=== PATIENT | female | born 1995 | race Caucasian/White ===

== ENCOUNTER 2017-08-23 13:14 | Emergency (ER) | payer MEDICAID ==
[2017-08-23 13:20] VITALS: BP 116/78; PULSE 96; RESP 20; TEMP 98.6; O2SAT 98
[2017-08-23 13:26] VITALS: BMI 30.2
--- NOTE | 2017-08-23 15:56 | C.PDOC ---
History Of Present Illness 22 y/o female presents to the ER complaining of decreased vision in the right eye over the past 5 days. Patient states that the symptoms have been occuring gradually. Patient states that she did not seek any medical attention until now. Patient denies having any pain with eye movement, trauma, and other complaints. Chief Complaint (Nursing): Eye Problem History Per: Patient History/Exam Limitations: no limitations Onset/Duration Of Symptoms: Days Current Symptoms Are (Timing): Still Present Severity: Moderate Past Medical History Reviewed: Historical Data, Nursing Documentation, Vital Signs Vital Signs: Last Vital Signs Temp 98.6 F 08/23/17 13:20 Pulse 96 H 08/23/17 13:20 Resp 20 08/23/17 13:20 BP 116/78 08/23/17 13:20 Pulse Ox 98 08/23/17 16:01 - Medical History PMH: Asthma Surgical History: Tonsillectomy - [facility] Procedures MONITORING NOS (07/22/13) MANUAL ASSIST DELIV NEC (12/03/13) MEDICAL INDUCTION LABOR (12/03/13) REPAIR OB LACERATION NEC (12/03/13) SURG INDUCT LABOR NEC (12/03/13) TONSILLECTOMY/ADENOIDEC (05/29/01) Family History: States: No Known Family Hx - Social History Hx Tobacco Use: Yes Hx Alcohol Use: No Hx Substance Use: No - Immunization History Hx Tetanus Toxoid Vaccination: No Hx Influenza Vaccination: Yes Hx Pneumococcal Vaccination: No Review Of Systems Except As Marked, All Systems Reviewed And Found Negative. Eyes: Positive for: Vision Change (decreased vision in right eye). Negative for : Pain Physical Exam - Physical Exam Appears: Non-toxic, No Acute Distress Skin: Normal Color, Warm Head: Atraumatic, Normacephalic Eye(s): bilateral: PERRL, EOMI, right: Other (minimal vision with right eye, soft globe) Nose: Normal Oral Mucosa: Moist Neck: Supple Chest: Symmetrical Cardiovascular: Rhythm Regular Respiratory: Normal Breath Sounds, No Accessory Muscle Use, No Rales, No Rhonchi , No Wheezing Extremity: Normal ROM Neurological/Psych: Oriented x3, Normal Speech, Normal Motor, Normal Sensation ED Course And Treatment O2 Sat by Pulse Oximetry: 98 (RA) Pulse Ox Interpretation: Normal Medical Decision Making Medical Decision Making: Progress: Patient has been discharged and told to follow up with eye clinic. Disposition - Disposition Referrals: Trenton Marques [Staff Provider] - Disposition: HOME/ ROUTINE Disposition Time: 14:15 Condition: STABLE Additional Instructions: Thank you for letting us take care of you today. The emergency medical care you received today was directed at your acute symptoms. If you were prescribed any medication, please fill it and take as directed. It may take several days for your symptoms to resolve. Return to the Emergency Department if your symptoms worsen, do not improve, or if you have any other problems. Please contact your doctor or call one of the physicians/clinics you have been referred to that are listed on the Patient Visit Information form that is included in your discharge packet. Bring any paperwork you were given at discharge with you along with any medications you are taking to your follow up visit. Our treatment cannot replace ongoing medical care by a primary care provider (PCP) outside of the emergency department. Thank you for allowing the [facility] team to be part of your care today. Follow up with the eye clinic now. They are expecting you. Instructions: Blurred Vision (ED) Forms: [employer] (Algerian) - Clinical Impression Clinical Impression: Blurry vision - Scribe Statement The provider has reviewed the documentation as recorded by the Scribe Saravanan Dove Provider Attestation: All medical record entries made by the Scribe were at my direction and personally dictated by me. I have reviewed the chart and agree that the record accurately reflects my personal performance of the history, physical exam, medical decision making, and the department course for this patient. I have also personally directed, reviewed, and agree with the discharge instructions and disposition.
== END 2017-08-23 14:20 | disposition home or self-care (01) ==
LOC: C.ER 13:14
DX: H53.8 Other visual disturbances (principal)

== ENCOUNTER 2018-07-24 17:57 | Emergency (ER) | payer MEDICAID ==
[2018-07-24 17:57] VITALS: BMI 62.4
[2018-07-24 18:58] LABS: HCG,QUALITATIVE URINE NEGATIVE (NEGATIVE)
[2018-07-24 19:03] LABS: SQUAMOUS EPITHIAL 4 /hpf (0-5); URINE BACTERIA RARE (<OCC); URINE BILIRUBIN NEGATIVE (NEGATIVE); URINE BLOOD 2+ (NEGATIVE); URINE CLARITY Clear (Clear); URINE COLOR Yellow (YELLOW); URINE GLUCOSE (UA) NORMAL (Normal); URINE LEUKOCYTE ESTERASE NEG Leu/uL (Negative); URINE PROTEIN NEGATIVE (NEGATIVE); URINE UROBILINOGEN NORMAL mg/dL (0.2-1.0)
--- NOTE | 2018-07-24 19:25 | C.PDOC ---
History Of Present Illness 23 year old female presents to the ED c/o new onset pelvic pain that has been intermittent for the past 3 days. Patient reports her pain is associated with nausea, vomiting and occasional epigastric pain. Patient also requesting STD evaluation. Patient states concern for recent exposure. Patient denies fever, chills, diarrhea, rash, back pain, dysuria, hematuria, vaginal bleeding, vaginal discharge, recent travel. Time Seen by Provider: 07/24/18 19:13 Chief Complaint (Nursing): Abdominal Pain History Per: Patient History/Exam Limitations: no limitations Onset/Duration Of Symptoms: Days (3) Current Symptoms Are (Timing): Still Present Location Of Pain/Discomfort: Epigastric, Other (Pelvic pain) Quality Of Discomfort: "Pain" Associated Symptoms: Nausea, Vomiting. denies: Diarrhea, Urinary Symptoms Recent travel outside of the [place]: No Additional History Per: Patient Abnormal Vaginal Bleeding: No Last Menstral Period: 07/23/2018 Past Medical History Reviewed: Historical Data, Nursing Documentation, Vital Signs Vital Signs: Last Vital Signs Temp 98 F 07/24/18 18:10 Pulse 82 07/24/18 18:10 Resp 18 07/24/18 18:10 BP 125/85 07/24/18 18:10 Pulse Ox 100 07/24/18 18:10 - Medical History PMH: Asthma Surgical History: Tonsillectomy - [facility] Procedures MONITORING NOS (07/22/13) MANUAL ASSIST DELIV NEC (12/03/13) MEDICAL INDUCTION LABOR (12/03/13) REPAIR OB LACERATION NEC (12/03/13) SURG INDUCT LABOR NEC (12/03/13) TONSILLECTOMY/ADENOIDEC (05/29/01) Family History: States: Unknown Family Hx - Social History Hx Tobacco Use: Yes Hx Alcohol Use: No Hx Substance Use: No - Immunization History Hx Tetanus Toxoid Vaccination: No Hx Influenza Vaccination: Yes Hx Pneumococcal Vaccination: No Review Of Systems Constitutional: Negative for: Fever, Chills Cardiovascular: Negative for: Chest Pain Respiratory: Negative for: Shortness of Breath Gastrointestinal: Positive for: Nausea, Vomiting, Abdominal Pain Genitourinary: Positive for: Pelvic Pain. Negative for: Dysuria, Vaginal Discharge, Vaginal Bleeding Musculoskeletal: Negative for: Back Pain Skin: Negative for: Rash Neurological: Negative for: Weakness, Numbness Physical Exam - Physical Exam Appears: Non-toxic, No Acute Distress Skin: Normal Color, Warm, Dry Head: Atraumatic, Normacephalic Eye(s): bilateral: Normal Inspection Oral Mucosa: Moist Neck: Normal ROM, Supple Chest: Symmetrical Cardiovascular: Rhythm Regular Respiratory: Normal Breath Sounds, No Rales, No Rhonchi, No Wheezing Gastrointestinal/Abdominal: Soft, Tenderness (epigastric), No Guarding, No Rebound Back: No CVA Tenderness Extremity: Normal ROM, No Tenderness, No Swelling Neurological/Psych: Oriented x3, Normal Speech, Normal Cognition Gait: Steady ED Course And Treatment - Laboratory Results Result Diagrams: 07/24/18 19:46 07/24/18 19:46 O2 Sat by Pulse Oximetry: 100 (ON RA) Pulse Ox Interpretation: Normal - CT Scan/US Ct abd/pelvis Other Rad Studies (CT/US): Read By Radiologist, Radiology Report Reviewed CT/US Interpretation: EXAM: CT Abdomen and Pelvis with IV contrast. CLINICAL HISTORY: PELVIC PAIN. TECHNIQUE: Axial computed tomography images of the abdomen and pelvis with oral and intravenous contrast. CONTRAST: With; 100MLS VISI 320. COMPARISON: None provided. FINDINGS: LUNG BASES: The lung bases appear clear. No pleural effusions are seen. LIVER: Unremarkable. GALLBLADDER AND BILE DUCTS: The gallbladder appears within normal limits. No radioopaque gallstones are seen. No biliary ductal dilatation is evident. PANCREAS: Unremarkable. SPLEEN: Unremarkable. ADRENAL GLANDS: Unremarkable. KIDNEYS, URETERS, AND BLADDER: The kidneys appear within normal limits. There is no h ydronephrosis or hydroureter. No urinary calculi are seen. STOMACH AND BOWEL: Thick walled loops of jejunum as well as ileum compatible with enteritis. Infectious and inflammatory etiologies are considered. APPENDIX: No evidence of acute appendicitis on CT examination. PERITONEUM: No free fluid. No free air. LYMPH NODES: No lymphadenopathy is evident. REPRODUCTIVE: Uterus and ovaries are unremarkable. VASCULATURE: No evidence of abdominal aortic aneurysm. BONES: No aggressive appearing osseous lesion. No acute osseous pathology evident. IMPRESSION: Thick walled loops of jejunum as well as ileum compatible with enteritis. Infectious and inflammatory etiologies are considered. . Electronically signed on Jul 24, 2018 9:11:25 PM EST by: Edilberto Marrufo M.D., JIMMY Certified By ABR & CBCCT. Fellowship Trained MRI and CT Specialist Pelvic US Other Rad Studies (CT/US): Read By Radiologist, Radiology Report Reviewed CT/US Interpretation: History. Pelvic pain. Rule out TOA. Comparison. None available. Technique. TA/TV. Findings. Uterus. Measures 7.12 x 3.76 x 4.03 cm. Normal in size and appearance. No fibroid or other mass lesion seen. Endometrium. Measures 4.5 mm in diameter. Unremarkable. Right ovary. Measures 3.14 x 2.04 x 2.84 cm. No solid mass. Normal flow. Follicles. Left ovary. Measures 2.66 x 2.08 x 2.35 cm. No solid mass. Normal flow. Follicles. Free fluid. No significant free fluid noted. Other Findings. None. Impression. Bilateral ovarian follicles. Otherwise the study is unremarkable. . Electronically signed on Jul 24, 2018 9:20:18 PM EST by: Edilberto Marrufo M.D., JIMMY Certified By ABR & CBCCT. Fellowship Trained MRI and CT Specialist Reevaluation Time: 21:31 Reassessment Condition: Improved Medical Decision Making Medical Decision Making: Plan: * CT abd/pelvis * Labs * Morphine 2 mg IVP * Toradol 30 mg IVP * Zofran 4 mg IVP * UA * Pelvic US Disposition Counseled Patient/Family Regarding: Studies Performed, Diagnosis, Need For Followup, Rx Given - Disposition Referrals: [facility] [Outside] [facility] [Outside] [facility] CLINIC [Other] Disposition: HOME/ ROUTINE Disposition Time: 21:32 Condition: IMPROVED Prescriptions: Dicyclomine [Bentyl] 20 mg PO TID PRN #12 tab PRN Reason: Pain Ondansetron ODT [Zofran ODT] 4 mg PO TID PRN #12 odt PRN Reason: Nausea/Vomiting Instructions: Nausea and Vomiting, Adult (DC), Sexually-Transmitted Diseases (DC) Forms: [employer] (Scottish) - Clinical Impression Clinical Impression: Enteritis, STD exposure - Scribe Statement The provider has reviewed the documentation as recorded by the Scribdeirdre Schmidt All medical record entries made by the Scribe were at my direction and personally dictated by me. I have reviewed the chart and agree that the record accurately reflects my personal performance of the history, physical exam, medical decision making, and the department course for this patient. I have also personally directed, reviewed, and agree with the discharge instructions and disposition.
[2018-07-24 19:53] LABS: BASO % 0.3 % (0.0-2.0); EOS # 0.1 K/uL (0.0-0.7); EOS % 1.1 % (0.0-4.0); HEMOGLOBIN 13.2 g/dL (11.0-16.0); LYMPH # 2.6 K/uL (1.0-4.3); LYMPH % 25.4 % (20.0-40.0); MEAN CELL VOLUME 84.6 fL (81.0-99.0); MEAN CORPUSCULAR HEMOGLOBIN 27.4 pg (27.0-31.0); MEAN CORPUSCULAR HGB CONC 32.3 g/dL (33.0-37.0); MEAN PLATELET VOLUME 8.7 fL (7.2-11.7); MONO # 0.5 K/uL (0.0-0.8); MONO % 5.2 % (0.0-10.0); NEUT # 7.1 K/uL (1.8-7.0); RBC 4.81 Mil/uL (3.80-5.20); RED CELL DISTRIBUTION WIDTH 14.5 % (11.5-14.5); WHITE BLOOD COUNT 10.4 K/uL (4.8-10.8)
[2018-07-24 20:05] LABS: ALB/GLOB RATIO 1.6 (1.0-2.1); ALBUMIN 4.5 g/dL (3.5-5.0); ALT/SGPT 25 U/L (9-52); AST/SGOT 21 U/L (14-36); BLOOD UREA NITROGEN 8 mg/dL (7-17); CALCIUM 8.6 mg/dl (8.6-10.4); GFR NON-AFRICAN AMERICAN > 60; LIPASE 28 U/L (23-300)
[2018-07-24] MEDS ORDERED: Iodixanol 320 MG/ML 100 ML BOTTLE IV ONE (20:24)
[2018-07-24 21:04] VITALS: BP 109/77; PULSE 71; RESP 20; TEMP 97.9
[2018-07-24 21:14] VITALS: O2SAT 100
[2018-07-24] MEDS ORDERED: cefTRIAXone (Rocephin) 250 mg Inj IM STA (21:30)
--- NOTE | 2018-07-25 08:59 | US ---
Date of service: 07/24/2018 HISTORY: PELVIC PAIN RO TOA COMPARISON: None available. TECHNIQUE: Transabdominal and transvaginal pelvic ultrasound was performed. FINDINGS: UTERUS: Measures 7.1 x 3.7 x 4.0 cm. Anteverted, normal in size and appearance. No fibroid or other mass lesion seen. ENDOMETRIUM: Measures 4.5 mm in diameter. The central endometrial echo complex is normal in appearance. CERVIX: No cervical abnormality identified. RIGHT OVARY: Measures 3.1 x 2.0 x 2.8 cm. No solid mass. Normal flow. LEFT OVARY: Measures 2.6 x 2.0 x 2.3 cm. No solid mass. Normal flow. FREE FLUID: No significant free fluid noted. OTHER FINDINGS: None. IMPRESSION: Normal pelvic ultrasound. A preliminary report was provided by [employer].
--- NOTE | 2018-07-25 11:53 | CT ---
Date of service: 07/24/2018 PROCEDURE: CT Abdomen and Pelvis with contrast HISTORY: PELVIC PAIN, [place] COMPARISON: Pelvic ultrasound performed earlier the same day. TECHNIQUE: CT scan of the abdomen and pelvis was performed after administration of intravenous contrast. Oral contrast was not administered. Coronal and sagittal reformatted images were obtained. Contrast dose: Radiation dose: Total exam DLP = 1053.73 mGy-cm. This CT exam was performed using one or more of the following dose reduction techniques: Automated exposure control, adjustment of the mA and/or kV according to patient size, and/or use of iterative reconstruction technique. FINDINGS: LOWER THORAX: The visualized lungs are clear. LIVER: Mild hepatomegaly and fatty liver. No gross lesion or ductal dilatation. GALLBLADDER AND BILE DUCTS: Well distended. No calcified gallstones, wall thickening or pericholecystic fluid. PANCREAS: Normal in size with homogeneous enhancement. No gross lesion or ductal dilatation. SPLEEN: Normal in size and appearance. ADRENALS: No discrete nodule. KIDNEYS AND URETERS: Normal in size with homogeneous enhancement. No hydronephrosis. No solid mass. VASCULATURE: No aortic aneurysm. BOWEL: Evaluation of the bowel is limited in the absence of oral contrast. The proximal small bowel loops are normal in caliber. There is mild dilatation of fluid-filled mid and distal small bowel loops. The colon is grossly normal in appearance. No bowel wall thickening or obstruction. APPENDIX: Normal appendix. PERITONEUM: No free fluid. No free air. LYMPH NODES: No enlarged lymph nodes. BLADDER: Decompressed. REPRODUCTIVE: The uterus is normal in size. BONES: No acute fracture. Within normal limits for the patient's age. OTHER FINDINGS: None. IMPRESSION: Fluid-filled mildly dilated mid and distal small bowel loops may represent nonspecific infectious/inflammatory enteritis. No bowel obstruction Mild hepatomegaly and fatty liver.
== END 2018-07-24 22:06 | disposition home or self-care (01) ==
LOC: C.ER 17:57
DX: Z20.2 Contact with and (suspected) exposure to infections with a predominantly sexual mode of transmission (principal); K52.9 Noninfective gastroenteritis and colitis, unspecified; Z72.0 Tobacco use
CPT/HCPCS: 74177; 76830; 76856; 80053; 81001; 83690; 84703; 85025; 87491; 87591; 96372; 96374; 96375; 99285; J0696; J1885; J2270; J2405; Q9967

== ENCOUNTER 2018-09-22 13:24 | Emergency (ER) | payer MEDICAID ==
[2018-09-22 13:24] VITALS: BMI 62.4
[2018-09-22 13:51] VITALS: RESP 20; O2SAT 99
[2018-09-22 14:42] LABS: SQUAMOUS EPITHIAL 1 /hpf (0-5); URINE BACTERIA RARE (<OCC); URINE BILIRUBIN NEGATIVE (NEGATIVE); URINE BLOOD 2+ (NEGATIVE); URINE CLARITY Clear (Clear); URINE COLOR Yellow (YELLOW); URINE GLUCOSE (UA) NORMAL (Normal); URINE LEUKOCYTE ESTERASE 1+ Leu/uL (Negative); URINE PROTEIN NEGATIVE (NEGATIVE); URINE UROBILINOGEN NORMAL mg/dL (0.2-1.0)
[2018-09-22 14:54] LABS: BASO % 0.2 % (0.0-2.0); EOS # 0.1 K/uL (0.0-0.7); EOS % 1.4 % (0.0-4.0); HEMOGLOBIN 12.5 g/dL (11.0-16.0); LYMPH % 20.8 % (20.0-40.0); MEAN CORPUSCULAR HEMOGLOBIN 27.8 pg (27.0-31.0); MEAN PLATELET VOLUME 8.8 fL (7.2-11.7); MONO # 0.7 K/uL (0.0-0.8); NEUT # 6.9 K/uL (1.8-7.0); NEUT % 70.6 % (50.0-75.0); RBC 4.51 Mil/uL (3.80-5.20); RED CELL DISTRIBUTION WIDTH 14.1 % (11.5-14.5); WHITE BLOOD COUNT 9.8 K/uL (4.8-10.8)
[2018-09-22 14:56] LABS: BLOOD UREA NITROGEN 11 mg/dL (7-17); CALCIUM 8.5 mg/dl (8.6-10.4); GFR NON-AFRICAN AMERICAN > 60
--- NOTE | 2018-09-22 15:53 | C.PDOC ---
History Of Present Illness 23 y/o female presents to the ED complaining of lower abdominal pain for 1 month. Patient was seen here in July for the same complaint, had an ultrasound and labs which were negative. Pain is described as sometimes sharp/severe, but sometimes not. Earlier today pain was a 100/10 per patient but at present pain is mild. Patient claims has not had sex in the past month. Denies possibility of . Denies any vaginal bleeding or discharge. No associated fever, chills, vomiting, diarrhea, or constipation. Time Seen by Provider: 09/22/18 13:56 Chief Complaint (Nursing): Abdominal Pain History Per: Patient History/Exam Limitations: no limitations Onset/Duration Of Symptoms: Days (1 month) Current Symptoms Are (Timing): Still Present Quality Of Discomfort: Sharp Abnormal Vaginal Bleeding: No Past Medical History Reviewed: Historical Data, Nursing Documentation, Vital Signs Vital Signs: Last Vital Signs Temp 98.1 F 09/22/18 13:48 Pulse 91 H 09/22/18 13:48 Resp 20 09/22/18 13:48 BP 118/76 09/22/18 13:48 Pulse Ox 99 09/22/18 13:48 - Medical History PMH: Asthma Surgical History: Tonsillectomy - [facility] Procedures MONITORING NOS (07/22/13) MANUAL ASSIST DELIV NEC (12/03/13) MEDICAL INDUCTION LABOR (12/03/13) REPAIR OB LACERATION NEC (12/03/13) SURG INDUCT LABOR NEC (12/03/13) TONSILLECTOMY/ADENOIDEC (05/29/01) Family History: States: Unknown Family Hx - Social History Hx Tobacco Use: Yes Hx Alcohol Use: No Hx Substance Use: No - Immunization History Hx Tetanus Toxoid Vaccination: No Hx Influenza Vaccination: No Hx Pneumococcal Vaccination: No Review Of Systems Constitutional: Negative for: Fever, Chills Cardiovascular: Negative for: Chest Pain Respiratory: Negative for: Shortness of Breath Gastrointestinal: Positive for: Abdominal Pain. Negative for: Vomiting, Diarrhea, Constipation, Melena, Hematochezia Genitourinary: Negative for: Dysuria, Frequency Musculoskeletal: Negative for: Back Pain Neurological: Negative for: Weakness, Dizziness Physical Exam - Physical Exam Appears: Well, Non-toxic, No Acute Distress Skin: Normal Color, Warm, No Rash Head: Normacephalic Eye(s): bilateral: Normal Inspection (no scleral icterus), PERRL, EOMI Oral Mucosa: Moist Neck: Normal ROM Chest: Symmetrical Cardiovascular: Rhythm Regular, No Murmur Respiratory: No Accessory Muscle Use, No Rhonchi, No Wheezing, Other (Normal ins piratory effort) Gastrointestinal/Abdominal: Bowel Sounds (normal), Soft, No Tenderness, No Distention, No Guarding Back: No CVA Tenderness, No Vertebral Tenderness Pelvic: No Vaginal Bleeding, No Vaginal Discharge, No Cervical Motion Tenderness, No Adnexal Tenderness, Other (exam chaperoned by ED JAMAR Holguin) Extremity: Bilateral: Atraumatic, Normal Color And Temperature, Normal ROM Pulses: Left Radial: Normal, Right Radial: Normal Neurological/Psych: Oriented x3, Normal Speech ED Course And Treatment - Laboratory Results Result Diagrams: 09/22/18 14:35 09/22/18 14:35 Lab Results: Urine Color Yellow (YELLOW) 09/22/18 14:30 Urine Clarity Clear (Clear) 09/22/18 14:30 Urine pH 5.0 (5.0-8.0) 09/22/18 14:30 Ur Specific [place] 1.027 (1.003-1.030) 09/22/18 14:30 Urine Protein Negative mg/dL (NEGATIVE) 09/22/18 14:30 Urine Glucose (UA) Normal mg/dL (Normal) 09/22/18 14:30 Urine Ketones Negative mg/dL (NEGATIVE) 09/22/18 14:30 Urine Blood 2+ (NEGATIVE) H 09/22/18 14:30 Urine Nitrate Negative (NEGATIVE) 09/22/18 14:30 Urine Bilirubin Negative (NEGATIVE) 09/22/18 14:30 Urine Urobilinogen Normal mg/dL (0.2-1.0) 09/22/18 14:30 Ur Leukocyte Esterase 1+ Sejal/uL (Negative) H 09/22/18 14:30 Urine WBC (Auto) 3 /hpf (0-5) 09/22/18 14:30 Urine RBC (Auto) 7 /hpf (0-3) H 09/22/18 14:30 Ur Squamous Epith Cells 1 /hpf (0-5) 09/22/18 14:30 Urine Bacteria Rare (<OCC) 09/22/18 14:30 O2 Sat by Pulse Oximetry: 99 (RA) Pulse Ox Interpretation: Normal - CT Scan/US US Other Rad Studies (CT/US): Read By Radiologist, Radiology Report Reviewed CT/US Interpretation: Accession No. : [id number]. Patient Name / ID : YASIR ARIAS / [id number]. Exam Date : 09/22/2018 15:28:00 ( Approved ). Study Comment : Sex / Age : F / 23Y. Creator : Shy Bowen MD. Dictator : Shy Bowen MD. Accessibility Lift Technician : Technical Product Manager : Shy Bowen MD. Approver2 : Report Date : 09/22/2018 16:33:04. My Comment : . Date of service: 09/22/2018. Indication: pelvic pain and . Comparison: Pelvis/transvaginal ultrasound performed 07/24/18. Technique: Real-time transabdominal pelvic ultrasound was performed. In addition a transvaginal pelvic ultrasound was necessary to better depict pelvic anatomy. Findings: Uterus measures approximately 8.1 x 4.6 x 5.8 cm. Anteverted. Cervix length measures approximately 2.9 cm. Endometrium measures approximately 1.2 cm in diameter. The gestational sac measures 4 mm and is too small for gestational ag e calculation. No evidence of yolk sac or pole at this time. The right ovary measures 3.5 x 2.4 x 3.2 cm and contains 2.4 x 2.1 x 2.2 cm probable corpus luteal cyst. The left ovary measures 2.8 x 1.5 x 2.3 cm. Blood flow was demonstrated to both ovaries. Small pelvic free fluid. Impression: Evidence of 4 mm probable intrauterine gestational sac which is too small for gestational age calculation. No evidence of yolk sac or pole at this time. Recommend correlation with quantitative beta HCG and follow-up as indicated. 2.4 cm probable right corpus luteal cyst. Small pelvic free fluid. Medical Decision Making Medical Decision Making: POC urine preg is positive. Impression: Abdominal pain during Plan: - Basic blood work, UA, Urine C&S pending - Chlamydia/GC swab sent - Ordered transvaginal US Patient counselled to follow up with obgyn for repeat beta testing and US. she does not have any pain at this time. Disposition Counseled Patient/Family Regarding: Studies Performed, Diagnosis, Need For Followup - Disposition Disposition: HOME/ ROUTINE Disposition Time: 16:43 Condition: IMPROVED Instructions: Symptoms Forms: General Discharge Instructions, [employer] (Welsh), Work Excuse - Clinical Impression Clinical Impression: Pelvic pain - PA / INDUSTRIAL ACCOUNTANT / Resident Statement MD/DO has reviewed & agrees with the documentation as recorded. - Scribe Statement The provider has reviewed the documentation as recorded by the Scribdeirdre Donnelly All medical record entries made by the Scribe were at my direction and personally dictated by me. I have reviewed the chart and agree that the record accurately reflects my personal performance of the history, physical exam, medic al decision making, and the department course for this patient. I have also personally directed, reviewed, and agree with the discharge instructions and disposition.
--- NOTE | 2018-09-22 16:36 | US ---
Date of service: 09/22/2018 Indication: pelvic pain and Comparison: Pelvis/transvaginal ultrasound performed 07/24/18 Technique: Real-time transabdominal pelvic ultrasound was performed. In addition a transvaginal pelvic ultrasound was necessary to better depict pelvic anatomy. Findings: Uterus measures approximately 8.1 x 4.6 x 5.8 cm. Anteverted. Cervix length measures approximately 2.9 cm. Endometrium measures approximately 1.2 cm in diameter. The gestational sac measures 4 mm and is too small for gestational age calculation. No evidence of yolk sac or pole at this time. The right ovary measures 3.5 x 2.4 x 3.2 cm and contains 2.4 x 2.1 x 2.2 cm probable corpus luteal cyst. The left ovary measures 2.8 x 1.5 x 2.3 cm. Blood flow was demonstrated to both ovaries. Small pelvic free fluid. Impression: Evidence of 4 mm probable intrauterine gestational sac which is too small for gestational age calculation. No evidence of yolk sac or pole at this time. Recommend correlation with quantitative beta HCG and follow-up as indicated. 2.4 cm probable right corpus luteal cyst. Small pelvic free fluid.
[2018-09-22 16:59] VITALS: BP 116/76; PULSE 90; TEMP 98
== END 2018-09-22 16:59 | disposition home or self-care (01) ==
LOC: C.ER 13:24
DX: O26.891 Other specified pregnancy related conditions, first trimester (principal); R10.2 Pelvic and perineal pain; Z3A.00 Weeks of gestation of pregnancy not specified